=== PATIENT | male | born 1970 | race Caucasian/White ===

== ENCOUNTER 2023-02-27 07:12 | Outpatient (REF) | payer OTHER, SELFPAY | END 2023-02-27 07:13 | disposition home or self-care (01) | LOC: HO.LAB 07:12 | PROVIDERS: PCP Internal Medicine; Visit Provider Internal Medicine | DX: J30.89 Other allergic rhinitis (principal) | CPT/HCPCS: 36415; 86003 ==

== ENCOUNTER 2023-09-01 06:18 | Outpatient (REF) | payer OTHER, SELFPAY ==
[2023-09-01 06:38] LABS: MANUAL DIFF FLAG NO
[2023-09-01 07:14] LABS: Eosinophils Absolute Auto 0.1 X10*3/uL (0.0-0.4); Eosinophils Percent Auto 3.1 % (0-4); Hematocrit 46.4 % (42.0-52.0); Imm Gran Abs Auto 0.01 X10*3/uL (0.00-0.03); Imm Gran Pct Auto 0.3 % (0.0-0.4); Lymphocytes Absolute Auto 1.8 X10*3/uL (1.2-4.9); Lymphocytes Percent Auto 46.1 % (20-40); Mean Corpuscular HGB Conc 34.5 g/dl (31.0-36.0); Mean Corpuscular Hemoglobin 29.2 pg (27.0-33.0); Mean Corpuscular Volume 84.7 fL (80.0-98.0); Monocytes Absolute Auto 0.4 X10*3/uL (0.1-1.2); Monocytes Percent Auto 11.5 % (2-11); Neutrophils Absolute Auto 1.5 x10*3/uL (2.0-8.3); Platelet Count 401 X10*3/uL (160-400); Red Blood Count 5.48 X10*6/uL (4.60-5.80); Red Cell Distribution Width 14.5 % (11.0-16.0); White Blood Count 3.8 X10*3/uL (4.8-10.8)
[2023-09-01 07:17] LABS: Appearance Urine Clear; Color Urine Yellow; Glucose Urine UA Negative (Negative); Leukocyte Esterase Urine Negative (Negative); Nitrite Urine Negative (Negative); PH 5.5 (5.0-9.0); Urine Blood Negative (Negative); Urine Ketones 15 mg/dL (Negative); Urine Protein Negative (Neg-Trace)
[2023-09-01 07:22] LABS: Bacteria Urine None Seen (None Seen); Hyaline Casts Urine 0-2 /LPF (0-2); RBC Urine 0-2 /HPF (0-2); Squamous Epithelial Cell Urine 0-2 /HPF (0-2); WBC Urine 0-5 /HPF (0-5)
[2023-09-01 07:27] LABS: Estimated Average Glucose 88 mg/dL; Hemoglobin A1c % 4.7 % (<6.0)
[2023-09-01 08:06] LABS: Alanine Aminotransferase 31 U/L (0-40); Albumin Level 4.3 g/dL (3.5-5.0); Alkaline Phosphatase 38 U/L (39-117); Anion Gap 14 (12-20); Aspartate Amino Transferase 33 U/L (5-37); Bilirubin Total 0.4 mg/dL (0.0-1.0); Blood Urea Nitrogen 16 mg/dL (9-16); Calcium 9.2 mg/dL (8.4-10.2); Carbon Dioxide 25 mmol/L (22-29); Chloride 103 mmol/L (96-108); Cholesterol 218 mg/dL (<200); Estimated Glomerular Filt Rate > 60; Glucose Random 84 mg/dL (60-115); HDL Cholesterol 20 mg/dL (>40); LDL Cholesterol Calculated 182 mg/dL (<100); Sodium 138 mmol/L (135-145); Total Protein 7.1 g/dL (6.5-8.0); Triglycerides 81 mg/dL (<150)
[2023-09-01 08:21] LABS: TSH reflex Free T4 1.66 uIU/mL (0.32-4.0)
[2023-09-02 16:59] LABS: Follicle Stimulating Hormone <0.7 mIU/mL (1.4-12.8); Lutenizing Hormone <0.2 mIU/mL (1.5-9.3); Sex Hormone Binding Globulin 9 nmol/L (10-50)
[2023-09-06 17:24] LABS: Testosterone, Free 47.4 pg/mL (35.0-155.0); Testosterone, Total 177 ng/dL (250-1100)
== END 2023-09-01 06:19 | disposition home or self-care (01) ==
LOC: HO.LAB 06:18
PROVIDERS: PCP Nurse Practitioner Acute Care; Visit Provider Nurse Practitioner Acute Care
DX: Z00.00 Encounter for general adult medical examination without abnormal findings (principal); Z13.29 Encounter for screening for other suspected endocrine disorder; Z13.1 Encounter for screening for diabetes mellitus; E78.5 Hyperlipidemia, unspecified; E66.9 Obesity, unspecified; R53.83 Other fatigue; R37 Sexual dysfunction, unspecified
CPT/HCPCS: 36415; 80053; 80061; 81001; 82306; 83001; 83002; 83036; 84270; 84402; 84403; 84443; 85025

== ENCOUNTER 2023-10-16 12:51 | Outpatient (REF) | payer OTHER, SELFPAY ==
[2023-10-16 14:07] LABS: Cholesterol 147 mg/dL (<200); HDL Cholesterol 36 mg/dL (>40); LDL Cholesterol Calculated 98 mg/dL (<100); Triglycerides 65 mg/dL (<150)
== END 2023-10-16 12:52 | disposition home or self-care (01) ==
LOC: HO.LAB 12:51
PROVIDERS: PCP Nurse Practitioner Acute Care; Visit Provider Nurse Practitioner Acute Care
DX: E78.5 Hyperlipidemia, unspecified (principal)
CPT/HCPCS: 36415; 80061; 84146

== ENCOUNTER 2023-10-23 14:40 | Outpatient (REF) | payer OTHER, SELFPAY ==
--- NOTE | ~2023-10-23 | MR_ITS ---
EXAMINATION: MR BRAIN WITH AND WITHOUT CONTRAST CLINICAL INFORMATION: Elevated prolactin, secondary hypogonadism COMPARISON: None available TECHNIQUE: MRI of the brain was obtained using routine sequences with special attention to the sella turcica before and following administration of intravenous contrast. A total of 9 mL of Gadavist was administered intravenously. FINDINGS: Prominence of the posterior pituitary gland with mildly diminished size of the anterior pituitary gland. The infundibulum is midline. No hypoenhancing nodularity is visualized. The optic chiasm, Meckel's caves, and cavernous sinuses are within normal limits. There is no reduced diffusion to suggest acute infarct. No abnormal intracranial enhancement. The ventricles and sulci are normal in size and configuration. Intracranial flow voids are preserved. Trace mucosal thickening in the ethmoid air cells. The mastoid air cells are well-aerated. No focal expansile or destructive osseous lesion. MR/MR head/brain wo/w con IMPRESSION: There is mild prominence of the posterior pituitary gland and diminished size of the anterior pituitary gland without discrete hypoenhancing nodularity.
[2023-10-23] MEDS: gadobutroL 7.5 ML VIAL IVPUSH (16:03)
== END 2023-10-23 14:41 | disposition home or self-care (01) ==
LOC: HO.MRI 14:40
PROVIDERS: PCP Nurse Practitioner Acute Care; Visit Provider Nurse Practitioner Acute Care
DX: R79.89 Other specified abnormal findings of blood chemistry (principal); E29.1 Testicular hypofunction
CPT/HCPCS: 70553; A9585

== ENCOUNTER 2023-11-10 15:48 | Outpatient (AMB) | payer OTHER, SELFPAY ==
--- NOTE | 2023-11-10 15:55 | MHC.OFFVIS ---
Intake Vital Signs 11/10/23 16:00 Height 5 ft 9 in Weight 177 lb 0.499 oz BMI 26.1 BP 132/76 Blood Pressure Location Lt brachial Position Sitting Pulse 69 Pulse Source Pulse Oximeter Intake Visit Reasons: low testosterone-lvm Intake Note: Patient present today for low testosterone follow up visit. Heating Mechanic Required: No Accompanied by: Self / Same As Patient Allergies No Known Allergies Allergy (Verified 11/10/23 16:02) Medication List - Last Reconciled 11/10/23 by Federico Johnson MD rosuvastatin (Crestor) 10 mg PO DAILY HPI HPI Comments History of Present Illness Details 53 YO Male with who is seen in consultation at the request of his PCP for Hypogonadism. First diagnosed with Hypogonadism 2 yrs ago with labs revealing drawn low testosterone. Received testosterone injections Recently had low gonadotropins were normal prolactin. MRI of the pituitary was normal]. Was started on Testosterone supplementation with 6 mos . 100 mg once wkly and found relief.Off testosterone for couple of yrs Not Currently using testosterone. Currently not achieving spontaneous am erections, and unable to achieve erection when desired. Reports low libido. Decreased facial hair and shaving frequency. Denies any change in size or shape of testicles. Denies penile discharge or scrotal tenderness. Have 3 childre ages 12, 8 and 5 yrs Denies any history of mumps orchitis. Denies any head trauma. Denies history of KATHY. with children who were conceived spontaneously as above Sense of smell intact. Denies headache or visual changes, gynecomastia or galactorrhea. Denies orthostatic symptoms, weight loss. Denies change in size of hands or feet. Denies hair loss, weight gain, cold intolerance. History of DVT or PE: No Labs: PSA CBC [facility] Medical History (Updated 11/10/23 @ 16:22 by Federico Johnson MD) Hypogonadism, testicular Surgical History (Updated 11/10/23 @ 16:03 by MCKENNA Beard) H/O splenectomy Social History (Updated 11/10/23 @ 16:05 by MCKENNA Beard) Alcohol intake: never Patient Tobacco Use Status: Never used Tobacco Physical Exam Vital Signs: Last Vital Signs Pulse 69 11/10/23 16:00 BP 132/76 11/10/23 16:00 BMI result Body Mass Index 26.1 There is the absence of eunichoidal proportions. Neck exam reveals nl thyroid about 15 gms. Chest exam reveals absence of gynecomastia. Lungs CTA. Heart is S1 S2 Reg R/R. -M/R/G. Abdominal exam is benign. Muscle strength is 5/5 proximally. Examination of genitalia reveals nl size pthalus . Testes are of nl size and consistency. There is Vasu Stage V Hair development. Patient is denying to have a prostate exam performed Assessment & Plan Assessment & Plan (1) Hypogonadism, testicular: Code(s): E29.1 - Testicular hypofunction Plan: This is a 53-year-old white male with a history of secondary hypogonadism previously treated with testosterone. He has suppressed gonadotropins, normal prolactin a normal MRI with? Small pituitary gland. Etiology unclear. Rule out hemochromatosis although doubt. Will also check adrenal axis . Patient vehemently denies use of any anabolic substance Plan is to check ferritin and a.m. cortisol as well as a repeat a.m. testosterone fasting. Also strongly advised patient to go for sleep study to rule out sleep apnea prior to initiation of testosterone. Will check PSA baseline as well. After above, went over different formulations of testosterone including oral, intramuscular and subcutaneous, transdermal Orders: Orders Prostate Specific Antigen Today E29.1 - Testicular hypofunction Cortisol Random Today E29.1 - Testicular hypofunction Ferritin Today E29.1 - Testicular hypofunction Testosterone, Free/Total Today E29.1 - Testicular hypofunction Coding Level of Care Code New Pt Level 4 (64400) Diagnoses Hypogonadism, testicular E29.1
[2023-11-10 16:00] VITALS: BP 132/76; PULSE 69; BMI 26.1
== END 2023-11-10 16:40 | disposition home or self-care (01) ==
PROVIDERS: PCP Nurse Practitioner Acute Care; Visit Provider Internal Medicine Endocrinology, Diabetes & Metabolism
DX: E29.1 Testicular hypofunction (principal)
CPT/HCPCS: 99204

== ENCOUNTER → 2023-11-10 15:48 | Outpatient (BNVA) | payer OTHER, SELFPAY | PROVIDERS: PCP Nurse Practitioner Acute Care; Visit Provider Internal Medicine Endocrinology, Diabetes & Metabolism ==

== ENCOUNTER 2023-11-11 06:04 | Outpatient (REF) | payer OTHER, SELFPAY ==
[2023-11-11 08:14] LABS: Prostate Specific Antigen 0.18 ng/mL (<0.05-4.0)
[2023-11-11 08:15] LABS: Cortisol Random 17.4 ug/dL; Ferritin 105 ng/mL (20-250)
[2023-11-15 16:38] LABS: Testosterone, Free 17.1 pg/mL (35.0-155.0); Testosterone, Total 54 ng/dL (250-1100)
== END 2023-11-11 06:05 | disposition home or self-care (01) ==
LOC: HO.LAB 06:04
PROVIDERS: PCP Internal Medicine Endocrinology, Diabetes & Metabolism; Visit Provider Internal Medicine Endocrinology, Diabetes & Metabolism
DX: Z12.5 Encounter for screening for malignant neoplasm of prostate (principal); E29.1 Testicular hypofunction
CPT/HCPCS: 36415; 82533; 82728; 84153; 84402; 84403

== ENCOUNTER 2023-12-10 15:23 | Outpatient (AMB) | payer OTHER, SELFPAY ==
[2023-12-10 15:34] VITALS: BP 120/82; PULSE 72; BMI 26.1
--- NOTE | 2023-12-10 15:34 | A.OFFVIS_ITS ---
Vital Signs 12/10/23 15:34 Height 5 ft 9 in Weight 177 lb 0.499 oz BMI 26.1 BP 120/82 Blood Pressure Location Lt brachial Position Sitting Pulse 72 Pulse Source Pulse Oximeter Intake Visit Reasons: low testosterone-confirmed Intake Note: Patient present today for low testosterone follow up visit. Manufacturing Engineer Machining Required: No Accompanied by: Self / Same As Patient Allergies No Known Allergies Allergy (Verified 12/10/23 15:39) HPI Comments Details: 53 YO Male with who is seen in consultation at the request of his PCP for Hypogonadism. First diagnosed with Hypogonadism 2 yrs ago with labs revealing drawn low testosterone. Received testosterone injections Recently had low gonadotropins were normal prolactin. MRI of the pituitary was normal]. Was started on Testosterone supplementation with 6 mos . 100 mg once wkly and found relief.Off testosterone for couple of yrs Not Currently using testosterone. Currently not achieving spontaneous am erections, and unable to achieve erection when desired. Reports low libido. Decreased facial hair and shaving frequency. Denies any change in size or shape of testicles. Denies penile discharge or scrotal tenderness. Have 3 childre ages 12, 8 and 5 yrs Denies any history of mumps orchitis. Denies any head trauma. Denies history of KATHY. with children who were conceived spontaneously as above Sense of smell intact. Denies headache or visual changes, gynecomastia or galactorrhea. Denies orth ostatic symptoms, weight loss. Denies change in size of hands or feet. Denies hair loss, weight gain, cold intolerance. History of DVT or PE: No Labs: PSA CBC MRI did not show any evidence of pituitary mass. A.m. cortisol level was normal [facility] Medical History (Updated 11/10/23 @ 16:22 by Federico Johnson MD) Hypogonadism, testicular Surgical History (Updated 11/10/23 @ 16:03 by MCKENNA Beard) H/O splenectomy Social History (Updated 11/10/23 @ 16:05 by MCKENNA Beard) Alcohol intake: never Patient Tobacco Use Status: Never used Tobacco Physical Exam Vital Signs: Last Vital Signs Pulse 72 12/10/23 15:34 BP 120/82 12/10/23 15:34 BMI result Body Mass Index 26.1 Assessment & Plan Assessment & Plan (1) Hypogonadism, testicular: Code(s): E29.1 - Testicular hypofunction Category: Medical Plan: This is a 53-year-old white male with a history of secondary hypogonadism previously treated with testosterone. He has suppressed gonadotropins, normal prolactin a normal MRI with? Small pituitary gland. Hemochromatosis has been ruled out and the patient had normal a.m. cortisol Plan is to obtain a sleep study will be done about 3 weeks time. If sleep study fails to show any sleep apnea, will initiate intramuscular testosterone 100 mg q.1 weeks. Coding Level of Care Code Est Pt Level 3 (19082) Diagnoses Hypogonadism, testicular E29.1
== END 2023-12-10 15:50 | disposition home or self-care (01) ==
PROVIDERS: PCP Nurse Practitioner Acute Care; Visit Provider Internal Medicine Endocrinology, Diabetes & Metabolism
DX: E29.1 Testicular hypofunction (principal)
CPT/HCPCS: 99213

== ENCOUNTER → 2023-12-10 15:23 | Outpatient (BNVA) | payer OTHER, SELFPAY | PROVIDERS: PCP Nurse Practitioner Acute Care; Visit Provider Internal Medicine Endocrinology, Diabetes & Metabolism ==

== ENCOUNTER → 2023-12-30 07:46 | Outpatient (REF) | payer OTHER, SELFPAY | LOC: HO.SL 07:46 | PROVIDERS: Visit Provider Internal Medicine Endocrinology, Diabetes & Metabolism | DX: R06.83 Snoring (principal); R06.5 Mouth breathing | CPT/HCPCS: 95806 ==

== ENCOUNTER → 2023-12-30 08:06 | Outpatient (BNV) | payer OTHER, SELFPAY | PROVIDERS: Visit Provider Internal Medicine | DX: R06.83 Snoring (principal) | CPT/HCPCS: 95806 ==

== ENCOUNTER 2024-02-15 05:56 | Outpatient (REF) | payer OTHER, SELFPAY ==
[2024-02-15 08:01] LABS: Hematocrit 48.1 % (42.0-52.0); Hemoglobin 16.5 g/dl (14.0-18.0)
[2024-02-15 10:30] LABS: Prostate Specific Antigen 0.23 ng/mL (<0.05-4.0)
[2024-02-19 14:54] LABS: Testosterone, Free 117.2 pg/mL (35.0-155.0); Testosterone, Total 505 ng/dL (250-1100)
[2024-02-21 10:48] LABS: Follicle Stimulating Hormone <0.7 mIU/mL (1.4-12.8); Lutenizing Hormone <0.2 mIU/mL (1.5-9.3); Sex Hormone Binding Globulin 16 nmol/L (10-50)
== END 2024-02-15 05:57 | disposition home or self-care (01) ==
LOC: HO.LAB 05:56
PROVIDERS: Urology; PCP Nurse Practitioner Acute Care; Visit Provider Internal Medicine Endocrinology, Diabetes & Metabolism
DX: E29.1 Testicular hypofunction (principal); Z12.5 Encounter for screening for malignant neoplasm of prostate
CPT/HCPCS: 36415; 83001; 83002; 84153; 84270; 84402; 84403; 85014; 85018

== ENCOUNTER 2024-02-18 06:52 | Outpatient (REF) | payer OTHER, SELFPAY ==
[2024-02-24 22:27] LABS: Testosterone, Free 165.2 pg/mL (35.0-155.0); Testosterone, Total 744 ng/dL (250-1100)
== END 2024-02-18 06:53 | disposition home or self-care (01) ==
LOC: HO.LAB 06:52
PROVIDERS: PCP Nurse Practitioner Acute Care; Visit Provider Internal Medicine Endocrinology, Diabetes & Metabolism
DX: E29.1 Testicular hypofunction (principal)
CPT/HCPCS: 36415; 84402; 84403

== ENCOUNTER 2024-06-08 15:02 | Outpatient (AMB) | payer OTHER, SELFPAY ==
--- NOTE | 2024-06-08 15:03 | MHC.OFFVIS ---
Vital Signs 06/08/24 15:05 Height 5 ft 9 in Weight 176 lb 12.972 oz BMI 26.1 BP 104/66 Blood Pressure Location Rt brachial Position Sitting Pulse 74 Pulse Source Pulse Oximeter Intake Visit Reasons: low testosterone-confirmed Intake Note: Patient present today for low testosterone follow up visit. Foreign Language Stenographer Required: No Accompanied by: Self / Same As Patient Allergies No Known Allergies Allergy (Verified 06/08/24 15:05) HPI Comments Details: 53 YO Male with who is seen in consultation at the request of his PCP for Hypogonadism. First diagnosed with Hypogonadism 2 yrs ago with labs revealing drawn low testosterone. Received testosterone injections Recently had low gonadotropins were normal prolactin. MRI of the pituitary was normal]. Was started on Testosterone supplementation with 6 mos . 100 mg once wkly and found relief.Off testosterone for couple of yrs Currently not achieving spontaneous am erections, and unable to achieve erection when desired. Reports low libido. Decreased facial hair and shaving frequency. Denies any change in size or shape of testicles. Denies penile discharge or scrotal tenderness. Have 3 childre ages 12, 8 and 5 yrs Denies any history of mumps orchitis. Denies any head trauma. Denies history of KATHY. with children who were conceived spontaneously as above Sense of smell intact. Denies headache or visual changes, gynecomastia or galactorrhea. Denies orthostatic symptoms, weight loss. Denies change in size of hands or feet. Denies hair loss, weight gain, cold intolerance. History of DVT or PE: No Labs: PSA CBC MRI did not show any evidence of pituitary mass. A.m. cortisol level was normal On 100 mg of testosterone IM Qwkly. Good libido. No change in urine stream [facility] Medical History (Updated 11/10/23 @ 16:22 by Federico Johnson MD) Hypogonadism, testicular Surgical History H/O splenectomy Family History (Updated 06/08/24 @ 15:06 by MCKENNA Smith) Mother No known health problems Father No known health problems Social History Alcohol intake: never Patient Tobacco Use Status: Never used Tobacco Physical Exam Const Other: Patient refused rectal examination Assessment & Plan Assessment & Plan (1) Hypogonadism, testicular: Code(s): E29.1 - Testicular hypofunction Category: Medical Plan: This is a 53-year-old white male with a history of secondary hypogonadism previously treated with testosterone. He has suppressed gonadotropins, normal prolactin a normal MRI with? Small pituitary gland. Hemochromatosis has been ruled out and the patient had normal a.m. cortisol . Currently on 100 mg of intramuscular testosterone Q weekly Plan is to obtain peak and trough testosterone, CBC and PSA adjust testosterone accordingly. The patient asked about other testosterone delivery systems and may consider transdermal testosterone oral testosterone in the future but wants to continue the intramuscular for now Orders: Orders Hematocrit Today E29.1 - Testicular hypofunction Hemoglobin Today E29.1 - Testicular hypofunction Testosterone, Free/Total 1 Week E29.1 - Testicular hypofunction Prostate Specific Antigen Today E29.1 - Testicular hypofunction Coding Level of Care Code Est Pt Level 3 (51472) Diagnoses Hypogonadism, testicular E29.1
[2024-06-08 15:05] VITALS: BP 104/66; PULSE 74; BMI 26.1
== END 2024-06-08 15:21 | disposition home or self-care (01) ==
PROVIDERS: PCP Nurse Practitioner Acute Care; Visit Provider Internal Medicine Endocrinology, Diabetes & Metabolism
DX: E29.1 Testicular hypofunction (principal)
CPT/HCPCS: 99213

== ENCOUNTER → 2024-06-08 15:02 | Outpatient (BNVA) | payer OTHER, SELFPAY | PROVIDERS: PCP Nurse Practitioner Acute Care; Visit Provider Internal Medicine Endocrinology, Diabetes & Metabolism ==

== ENCOUNTER 2024-07-01 06:05 | Outpatient (REF) | payer OTHER, SELFPAY ==
[2024-07-01 07:24] LABS: Hematocrit 45.9 % (42.0-52.0); Hemoglobin 16.1 g/dl (14.0-18.0)
[2024-07-01 08:25] LABS: Prostate Specific Antigen 0.31 ng/mL (<0.05-4.0)
[2024-07-06 17:58] LABS: Testosterone, Free 170.6 pg/mL (35.0-155.0); Testosterone, Total 639 ng/dL (250-1100)
== END 2024-07-01 06:06 | disposition home or self-care (01) ==
LOC: HO.LAB 06:05
PROVIDERS: PCP Nurse Practitioner Acute Care; Visit Provider Internal Medicine Endocrinology, Diabetes & Metabolism
DX: E29.1 Testicular hypofunction (principal); Z12.5 Encounter for screening for malignant neoplasm of prostate
CPT/HCPCS: 36415; 84153; 84402; 84403; 85014; 85018

== ENCOUNTER 2024-12-27 07:03 | Outpatient (REF) | payer OTHER, SELFPAY ==
[2024-12-27 07:17] LABS: MANUAL DIFF FLAG NO
[2024-12-27 07:56] LABS: Estimated Average Glucose 103 mg/dL; Hemoglobin A1c % 5.2 % (<6.0)
[2024-12-27 08:02] LABS: Basophils Percent Auto 0.9 % (0-2); Eosinophils Absolute Auto 0.2 X10*3/uL (0.0-0.4); Eosinophils Percent Auto 5.1 % (0-4); Hematocrit 48.2 % (42.0-52.0); Hemoglobin 16.4 g/dl (14.0-18.0); Lymphocytes Absolute Auto 1.9 X10*3/uL (1.2-4.9); Lymphocytes Percent Auto 41.3 % (20-40); Mean Corpuscular Hemoglobin 26.9 pg (27.0-33.0); Mean Corpuscular Volume 79.1 fL (80.0-98.0); Mean Platelet Volume 9.3 fL (9.4-12.4); Monocytes Absolute Auto 0.8 X10*3/uL (0.1-1.2); Monocytes Percent Auto 18.4 % (2-11); Neutrophils Absolute Auto 1.5 x10*3/uL (2.0-8.3); Neutrophils Percent Auto 34.3 % (45-73); Platelet Count 409 X10*3/uL (160-400); Red Blood Count 6.09 X10*6/uL (4.60-5.80); Red Cell Distribution Width 16.3 % (11.0-16.0); White Blood Count 4.5 X10*3/uL (4.8-10.8)
[2024-12-27 08:24] LABS: Alanine Aminotransferase 149 U/L (0-40); Albumin Level 4.5 g/dL (3.5-5.0); Alkaline Phosphatase 37 U/L (39-117); Anion Gap 12 (12-20); Aspartate Amino Transferase 98 U/L (5-37); Bilirubin Total 0.7 mg/dL (0.0-1.0); Blood Urea Nitrogen 17 mg/dL (9-16); Calcium 9.6 mg/dL (8.4-10.2); Carbon Dioxide 25 mmol/L (22-29); Chloride 106 mmol/L (96-108); Cholesterol 212 mg/dL (<200); Estimated Glomerular Filt Rate > 60; Glucose Random 92 mg/dL (60-115); HDL Cholesterol 41 mg/dL (>40); LDL Cholesterol Calculated 149 mg/dL (<100); Potassium 3.9 mmol/L (3.3-5.1); Sodium 139 mmol/L (135-145); Total Protein 7.3 g/dL (6.5-8.0); Triglycerides 112 mg/dL (<150)
[2024-12-27 08:40] LABS: Thyroid Stimulating Hormone 1.16 uIU/mL (0.32-4.0); Vitamin D 25-OH Total 117.6 ng/mL (>30)
== END 2024-12-27 07:04 | disposition home or self-care (01) ==
LOC: HO.LAB 07:03
PROVIDERS: Absent Provider Internal Medicine Endocrinology, Diabetes & Metabolism; PCP Nurse Practitioner Acute Care; Visit Provider Nurse Practitioner Acute Care
DX: Z00.00 Encounter for general adult medical examination without abnormal findings (principal); Z13.220 Encounter for screening for lipoid disorders; Z13.1 Encounter for screening for diabetes mellitus; E55.9 Vitamin D deficiency, unspecified; Z13.29 Encounter for screening for other suspected endocrine disorder; Z13.6 Encounter for screening for cardiovascular disorders
CPT/HCPCS: 36415; 80053; 80061; 82306; 83036; 84443; 85025

== ENCOUNTER 2025-01-02 17:04 | Outpatient (REF) | payer OTHER, SELFPAY ==
[2025-01-02 17:10] LABS: Appearance Urine Clear; Color Urine Yellow; Glucose Urine UA Negative (Negative); Leukocyte Esterase Urine Negative (Negative); Nitrite Urine Negative (Negative); Specific Gravity - Urine <= 1.005 (1.005-1.025); Urine Blood Negative (Negative); Urine Ketones Negative (Negative); Urine Protein Negative (Neg-Trace)
[2025-01-02 17:13] LABS: Bacteria Urine None Seen (None Seen); Hyaline Casts Urine 0-2 /LPF (0-2); RBC Urine 0-2 /HPF (0-2); Squamous Epithelial Cell Urine 0-2 /HPF (0-2); WBC Urine 0-5 /HPF (0-5)
--- OUTSIDE RECORDS SUMMARY | 2025-01-02 17:56 | XMS_ITS | Clinical Summary ---
Author Organization [facility] Address [address] [place] [id number] Care Team Providers Care Farm Machinery Erector Name Role Phone Unavailable Primary Care Provider Unavailabl e Medications Medication Sig Dispensed Refills Start Date End Date Status finasteride (PROSCAR) 5 MG tablet TAKE 1 TABLET EVERY DAY 90 tablet 3 08/21/2021 Active Immunizations Name Administration Dates Next Due Covid-19 (Pfizer) Dilution Required 08/03/2020,1 09/12/2019 Social History Tobacco Use Types Packs/Day Years Used Date Smoking Tobacco: Never Assessed Sex and Gender Information Value Date Recorded Sex Assigned at Male 07/12/2020 12:55 PM EST Gender Identity Not on file Sexual Orientation Not on file Plan of Treatment Health Maintenance Due Date Last Done Comments Hepatitis B Vaccines (1 of 3 - 3-dose series) 1970 Hepatitis C Screening 1970 Depression Screening 1982 Preventative Health Evaluation 1988 DTap / Tdap / Td (1 - Tdap) 1989 Colon Cancer Screening (Colonoscopy) 2015 Shingrix-Zoster Vaccine (1 o f 2) 2020 COVID-19 Vaccine (4 - 2023-2 5 season) 2024 07/12/2021, 08/03/2020, 07/12/2020 Influenza Vaccine (Season Ended) 2025 03/21/2022, 03/29/2021 Pneumococcal Vaccine Aged Out No long er eligible based on patient's age to complete this topic RSV Ped < 20 months Aged Out No longe r eligible based on patient's age to complete this topic
== END 2025-01-02 17:05 | disposition home or self-care (01) ==
LOC: HO.LNP 17:04
PROVIDERS: Visit Provider Nurse Practitioner Acute Care
DX: Z00.00 Encounter for general adult medical examination without abnormal findings (principal)
CPT/HCPCS: 81001

== ENCOUNTER 2025-02-10 06:22 | Outpatient (REF) | payer OTHER, SELFPAY ==
--- OUTSIDE RECORDS SUMMARY | 2025-02-10 06:24 | XMS_ITS | Clinical Summary ---
Author Organization [facility] Address [address] [place] [address] Care Team Providers Care Guide Rail Cleaner Name Role Phone Unavailable Primary Care Provider [...] season) 2024 07/12/2021, 08/03/2020, 07/12/2020 Influenza Vaccine (#1) 2025 2, 03/29/2021 Pneumococcal Vaccine Aged Out No long er eligible based on patient's age to complete this topic RSV Ped < 20 months Aged Out No longe r eligible based on patient's age to complete this topic
--- OUTSIDE RECORDS SUMMARY | 2025-02-10 06:24 | XMS_ITS | Patient Health Record ---
Author Organization [facility] [address] [address] Address [address] [facility] [place] [address] Care Team Providers Care Herb Grower Name Role Phone ARNULFO MALONE Unavailable [phone] Allergies No Known Allergies Reason For Referral No Information Medications Medication SIG (Take, Route, Frequency, Duration) Notes Start Date End Date Status Metoprolol Succinate 25 MG 1 capsule Ora lly Once a day Active Crestor 10 MG 1 tablet Orally Once a day Active Tamsulosin HCl 0.4 MG Oral; Duration: 30 Active traMADol HCl 50 MG TAKE 1 TABLET BY TONO TWICE A DAY NEEDED Oral; Duration: 30 08/11/2024 Active Social History Tobacco Use: Social History Observation Description Date Details (start date - stop date) Never Smoker NA - NA Tobacco Use/Smoking Question Answer Notes Are you a nonsmoker Problems Problem Type SNOMED Code ICD Code Onset Dates Problem Status W/U Status Risk Notes Problem Mixed hyperlipidemia (019004003) Mixed hyperlipidemia (E78.2) Active confirmed Problem Hyperlipidemia (55008467) Hyperlipidemia, unspecified (E78.5) Active confirmed Problem Lipid screening (769788640) Encounter for screening for lipoid disorders (Z13.220) Active confirmed Problem Vitamin D deficiency (86024039) Vitamin D deficiency (E55.9) Active confirmed Problem Diabetes mellitus screening (870587287) Diabetes mellitus screening (Z13.1) Active confirmed Problem hypercholesterolemia (disorder) (49071385) Hypercholesteremia (E78.00) Active confirmed Problem Avitaminosis D (91343561) Avitaminosis D (E55.9) Active confirmed Problem Testicular hypofunction (054578004) Secondary male hypogonadism (E29.1) Active confirmed Problem Endocrine/metabolic screening (352441756) Encounter for screening for endocrine disorder (Z13.29) Active confirmed Problem Sexual dysfunction (60293309) Sexual dysfunction (R37) Active confirmed Problem Seasonal allergic rhinitis (575700888) Chronic seasonal allergic rhinitis (J30.2) Active confirmed Vital Signs Heart Rate 78 /min 08/25/2024 Blood pressure diastolic 78 mm Hg 08/25/2024 Oximetry 98 % 08/25/2024 Height 68 in 08/25/2024 Blood pressure systolic 128 mm Hg 08/25/2024 Weight 176 lbs 08/25/2024 BMI 26.76 kg/m2 08/25/2024 Encounters Encounter Location Date Provider Diagnosis [facility] [address] [address] 08/25/2024 ARNULFO MALONE Secondary male hypog onadism E29.1 ; Hyperlipidemia, unspecified E78.5 ; Encounter for annual health examination Z00.00 and Chronic seasonal allergic rhinitis J30.2 [facility] [address] [address] 08/11/2024 ARNULFO MALONE [facility] [address] [place] [address] 01/06/2025 ARNULFO KEMALHOT [facility] [address] [place] [address] 01/18/2025 ARNULFO MALONE Hypercholesteremia E 78.00 ; Elevated liver function tests R79.89 and Prostate cancer screening Z12.5 [facility] [address] [address] 02/07/2025 ARNULFO KEMALHOT [facility] [address] [address] 02/07/2025 ARNULFO MALONE Assessments Encounter Date Diagnosis (ICD Code) Assessment Notes Treatment Notes Treatment Clinical Notes Section Notes 01/18/2025 Hypercholesteremia (ICD-10 - E78.00) 08/25/2024 Secondary male hypogonadism (ICD-10 - E29.1) Acute Concerns/Proble m List: 08/25/[address] score referral _update lipids and other labs Contracts signed for controlled substances Will see him biannually Of note, some information is being carried forward from prior records for informational purposes only and is being cited so that efficiency, safety and quality of the patient's care is not compromised This note was prepared using voice recognition software and direct typing Please excuse inadvertent customer service teller or typing errors, or uncorrected word substitutions Although every attempt has been made by the provider to proofread this document, occasional misspellings and typographical errors may still be present Due to the previous pandemic, and the use of personal protective equipment (PPE) This may decrease voice recognition accuracy Inadvertent customer service teller errors may occur 01/18/2025 Elevated liver function tests (ICD-10 - R79.89) 08/25/2024 Hyperlipidemia, unspecified (ICD-10 - E78.5) Acute Concerns/Proble m List: 08/25/[address] score referral _update lipids and other labs Contracts signed for controlled substances Will see him biannually Of note, some information is being carried forward from prior records for informational purposes only and is being cited so that efficiency, safety and quality of the patient's care is not compromised This note was prepared using voice recognition software and direct typing Please excuse inadvertent customer service teller or typing errors, or uncorrected word substitutions Although every attempt has been made by the provider to proofread this document, occasional misspellings and typographical errors may still be present Due to the previous pandemic, and the use of personal protective equipment (PPE) This may decrease voice recognition accuracy Inadvertent customer service teller errors may occur 08/25/2024 Encounter for annual health examination (ICD-10 - Z00.00) Acute Concerns/Proble m List: 08/25/[address] score referral _update lipids and other labs Contracts signed for controlled substances Will see him biannually Of note, some information is being carried forward from prior records for informational purposes only and is being cited so that efficiency, safety and quality of the patient's care is not compromised This note was prepared using voice recognition software and direct typing Please excuse inadvertent customer service teller or typing errors, or uncorrected word substitutions Although every attempt has been made by the provider to proofread this document, occasional misspellings and typographical errors may still be present Due to the previous pandemic, and the use of personal protective equipment (PPE) This may decrease voice recognition accuracy Inadvertent customer service teller errors may occur 01/18/2025 Prostate cancer screening (ICD-10 - Z12.5) 08/25/2024 Chronic seasonal allergic rhinitis (ICD-10 - J30.2) Acute Concerns/Proble m List: 08/25/[address] score referral _update lipids and other labs Contracts signed for controlled substances Will see him biannually Of note, some information is being carried forward from prior records for informational purposes only and is being cited so that efficiency, safety and quality of the patient's care is not compromised This note was prepared using voice recognition software and direct typing Please excuse inadvertent customer service teller or typing errors, or uncorrected word substitutions Although every attempt has been made by the provider to proofread this document, occasional misspellings and typographical errors may still be present Due to the previous pandemic, and the use of personal protective equipment (PPE) This may decrease voice recognition accuracy Inadvertent customer service teller errors may occur Plan Of Treatment Pending Test Test Name Order Date Liver Function Test (LFT) 01/18/2025 MRI : Brain with and without contrast MRI : Brain without Contrast 10/21/2023 FSH 08/24/2023 LH 08/24/2023 LIPID PANEL 09/23/2023 LIPID PANEL 01/18/2025 PROLACTIN 09/23/2023 PSA, SCREEN 01/18/2025 SEX HORMONE BINDING GLOBULIN (SHBG) 07/28 TESTOSTERONE, FREE AND TOTAL (MALES >15 YRS OLD) 08/24/2023 Cologuard 08/25/2022 LIPID PANEL, STANDARD 08/25/2024 COMPREHENSIVE METABOLIC PANEL 08/25/2024 CBC (INCLUDES DIFF/PLT) 08/25/2024 URINALYSIS, COMPLETE 08/25/2024 HEMOGLOBIN A1c 08/25/2024 TSH 08/25/2024 VITAMIN D,25-OH,TOTAL,IA 08/25/2024 Future Test Test Name Order Date 25OH VITAMIN D 08/25/2023 CBC (COMPLETE BLOOD COUNT) WITH DIFF COMPREHENSIVE METABOLIC PANEL 08/25/2023 HEMOGLOBIN A1C 08/25/2023 LIPID PANEL 08/25/2023 TSH WITH REFLEX TO FT4 08/25/2023 URINALYSIS W/REFLEX CULTURE 08/25/2023 Next Appt Details Provider Name:ARNULFO MALONE, 03/02/2025 11:30:00 AM, [address], [address], [place], [address], Insurance Providers Payer Name Payer Address Payer Phone Subscriber Number Group Number Insured Name Patient Relationship to Insured Coverage Start Date Coverage End Date [place] [address] [address] [place] [address] [id number] Enrique Soto Self - patient is the insured Medical (General) History Surgical History Surgery Date(Month/Year) splenectomy
--- OUTSIDE RECORDS SUMMARY | 2025-02-10 06:24 | XMS_ITS | Clinical Summary ---
Author Organization [facility] Address [address] [address] Phone Care Team Providers Care Employment Recruiter Name Role Phone Erendira Sanchez APRN Primary Care Provider [phone] Social History Tobacco Use Types Packs/Day Years Used Date Smoking Tobacco: Never Assessed Education Answer Date Recorded Are you interested in more education? Not on terra e 12/01/2023 Are you concerned about learning? Not on file 12/01/2023 No 12/01/2023 No 12/01/2023 Digital Access Answer Date Recorded No 12/01/2023 No 12/01/2023 Reliable internet access at home? Not on file 12/01/2023 Device with a working camera? Not on file Sex and Gender Information Value Date Recorded Sex Assigned at Not on file Legal Sex Male 9:38 AM EST Gender Identity Not on file Sexual Orientation Not on file Plan of Treatment Health Maintenance Due Date Last Done Comments Adult Td,Tdap Booster 1970 LIPID PANEL 1970 DEPRESSION SCREENING 1982 SMOKING Hx and SMOKELESS TOB ACCO SCREENING 1983 HEPATITIS C SCREENING 1988 HIV ONE-TIME SCREENING (18-6 5 YEARS) 1988 COLOGUARD 2015 COLONOSCOPY 2015 COLORECTAL CANCER SCREENING 2015 FIT TEST 2015 FOBT 2015 SIGMOIDOSCOPY 2015 VIRTUAL COLONOSCOPY 2015 PNEUMOCOCCAL VACCINES (50+ y ears) (1 of 1 - PCV) 2020 ZOSTER VACCINES (1 of 2) 2020 COVID-19 VACCINE (2023-2 5 season) 2024 HEPATITIS A VACCINES Aged Out No long er eligible based on patient's age to complete this topic HIB VACCINES Aged Out No longer eligi ble based on patient's age to complete this topic MENINGOCOCCAL VACCINES (ACWY) Aged Out No longer eligible based on patient's age to complete this topic MENINGOCOCCAL VACCINES (B) Aged Out N o longer eligible based on patient's age to complete this topic Medical Devices Not on file Insurance [employer] Care Teams Employment Recruiter Relationship Specialty Start Date End Date Erendira Sanchez APRN [address] [place] [address] PCP - General Nurse Practitioner 01/01/24 Additional Source Comments The information contained in this document represents components of the legal health record. It is not the complete legal health record.[facility]
[2025-02-10 07:41] LABS: Alanine Aminotransferase 42 U/L (0-40); Albumin Level 4.5 g/dL (3.5-5.0); Alkaline Phosphatase 41 U/L (39-117); Aspartate Amino Transferase 38 U/L (5-37); Cholesterol 166 mg/dL (<200); HDL Cholesterol 35 mg/dL (>40); Total Protein 7.0 g/dL (6.5-8.0); Triglycerides 97 mg/dL (<150)
== END 2025-02-10 06:23 | disposition home or self-care (01) ==
LOC: HO.LAB 06:22
PROVIDERS: PCP Nurse Practitioner Acute Care; Visit Provider Nurse Practitioner Acute Care
DX: Z12.5 Encounter for screening for malignant neoplasm of prostate (principal); E78.00 Pure hypercholesterolemia, unspecified; R79.89 Other specified abnormal findings of blood chemistry
CPT/HCPCS: 36415; 80061; 80076; 84153

== ENCOUNTER 2025-03-03 06:09 | Outpatient (REF) | payer OTHER, SELFPAY ==
--- OUTSIDE RECORDS SUMMARY | 2025-03-03 06:12 | XMS_ITS | Clinical Summary ---
Author Organization [facility] Address [address] [place] [id number] Care Team Providers Care Hrbp Name Role Phone Unavailable Primary Care Provider [...]
[2025-03-03 07:35] LABS: Hematocrit 45.0 % (42.0-52.0); Hemoglobin 15.4 g/dl (14.0-18.0)
[2025-03-03 08:19] LABS: Prostate Specific Antigen 0.55 ng/mL (<0.05-4.0)
[2025-03-09 16:53] LABS: Testosterone, Free 332.7 pg/mL (35.0-155.0)
== END 2025-03-03 06:10 | disposition home or self-care (01) ==
LOC: HO.LAB 06:09
PROVIDERS: PCP Nurse Practitioner Acute Care; Visit Provider Internal Medicine Endocrinology, Diabetes & Metabolism
DX: Z12.5 Encounter for screening for malignant neoplasm of prostate (principal); E29.1 Testicular hypofunction
CPT/HCPCS: 36415; 84153; 84402; 84403; 85014; 85018

== ENCOUNTER 2025-03-23 09:15 | Outpatient (AMB) | payer OTHER, SELFPAY ==
--- NOTE | 2025-03-23 09:15 | A.OFFVIS_ITS ---
Vital Signs 03/23/25 09:17 Height 5 ft 9 in Weight 169 lb 1.513 oz BMI 25.0 BP 112/74 Blood Pressure Location Rt brachial Position Sitting Pulse 84 Pulse Source Pulse Oximeter Pulse Oximetry (%) 97 Oxygen Delivery Method Room Air Intake Visit Reasons: Blood Work Results Intake Note: Patient present today for low testosterone follow up visit. Membership Director Required: No Accompanied by: Self / Same As Patient Allergies No Known Allergies Allergy (Verified 03/23/25 09:19) Medication List - Last Reconciled 03/23/25 by Federico Johnson MD rosuvastatin 20 mg (2 x 10 mg) PO DAILY PRN testosterone 4 pumps transdermal DAILY HPI Comments Details: 53 YO Male with who is seen in consultation at the request of his PCP for Hypogonadism. First diagnosed with Hypogonadism 2 yrs ago with labs revealing drawn low testosterone. Received testosterone injections Recently had low gonadotropins were normal prolactin. MRI of the pituitary was normal]. Was started on Testosterone supplementation with 6 mos . 100 mg once wkly and found relief.Off testosterone for couple of yrs Currently not achieving spontaneous am erections, and unable to achieve erection when desired. Reports low libido. Decreased facial hair and shaving frequency. Denies any change in size or shape of testicles. Denies penile discharge or scrotal tenderness. Have 3 childre ages 12, 8 and 5 yrs Denies any history of mumps orchitis. Denies any head trauma. Denies history of KATHY. with children who were conceived spontaneously as above Sense of smell intact. Denies headache or visual changes, gynecomastia or galactorrhea. Denies orthostatic symptoms, weight loss. Denies change in size of hands or feet. Denies hair loss, weight gain, cold intolerance. History of DVT or PE: No Labs: PSA CBC MRI did not show any evidence of pituitary mass. A.m. cortisol level was normal On 100 mg of testosterone IM Qwkly. Good libido. No change in urine stream. Testosterone level was normal with normal PSA and CBC The patient is a 54-year-old male presenting with a follow-up for testosterone therapy and preventative health screenings. The patient is on testosterone therapy with levels at 970 ng/dL, feeling well without adverse effects. A calcium heart scan showed a score of 0, indicating no calcified plaque, despit e a family history of heart disease. PSA screening results were good, and the patient declined a rectal exam. - Labs: Testosterone level at 970 ng/dL, PSA levels reported as good. - Tests: Calcium heart scan score of 0, indicating no calcified plaque. [facility] Medical History (Updated 11/10/23 @ 16:22 by Federico Johnson MD) Hypogonadism, testicular Surgical History H/O splenectomy Family History Mother No known health problems Father No known health problems Social History Alcohol intake: never Patient Tobacco Use Status: Never used Tobacco Physical Exam Vital Signs: Last Vital Signs Pulse 84 03/23/25 09:17 BP 112/74 03/23/25 09:17 Pulse Ox 97 03/23/25 09:17 Oxygen Delivery Method Room Air 03/23/25 09:17 BMI result Body Mass Index 25.0 Const Other: Patient refused rectal examination Assessment & Plan Assessment & Plan (1) Hypogonadism, testicular: Code(s): E29.1 - Testicular hypofunction Category: Medical Plan: This is a 54-year-old white male with a history of secondary hypogonadism pr eviously treated with testosterone. He has suppressed gonadotropins, normal prolactin a normal MRI with? Small pituitary gland. Hemochromatosis has been ruled out and the patient had normal a.m. cortisol . Currently on 100 mg of intramuscular testosterone Q weekly Plan is to continue present management. Follow up scheduled in 1 year 1. Testosterone therapy The patient's testosterone levels are stable at 970 ng/dL, and he reports feeling well without adverse effects. Continued monitoring every 12 months is recommended unless issues arise. The patient had an opportunity to ask questions regarding treatment plan. The patient expressed understanding and agreement with the above treatment plan. Patient was informed and verbally consented to the use of an ambient scribe for clinic note documentation during this visit. Orders: Orders Testosterone, Free/Total 1 Year E29.1 - Testicular hypofunction Hematocrit 1 Year E29.1 - Testicular hypofunction Hemoglobin 1 Year E29.1 - Testicular hypofunction Prostate Specific Antigen 1 Year E29.1 - Testicular hypofunction Coding Level of Care Code Est Pt Level 3 (76198) Diagnoses Hypogonadism, testicular E29.1
[2025-03-23 09:17] VITALS: BP 112/74; PULSE 84; O2SAT 97; BMI 25.0
--- OUTSIDE RECORDS SUMMARY | 2025-03-23 10:14 | XMS_ITS | Clinical Summary ---
Author Organization [facility] Address [address] [place] [address] Care Team Providers Care Bracer Name Role Phone Unavailable Primary Care Provider [...]
--- OUTSIDE RECORDS SUMMARY | 2025-03-23 10:14 | XMS_ITS | Patient Health Record ---
[facility] Organization [facility] [address] [address] Address [address] [facility] [place] [address] Care Team Providers Care Tele Rn Name Role Phone ARNULFO MALONE Unavailable [phone] Allergies No Known Allergies Reason For Referral No Information Medications Medication SIG (Take, Route, Frequency, Duration) Notes Start Date End Date Status Crestor 10 MG 1 tablet Orally Once a day Active Metoprolol Succinate 25 MG 1 capsule Ora lly Once a day Active traMADol HCl 50 MG TAKE 1 TABLET BY TONO TH TWICE A DAY NEEDED Oral; Duration: 30 08/11/2024 Active Tamsulosin HCl 0.4 MG Oral; Duration: 30 Active Social History Tobacco Use: Social History Observation Description Date Details (start date - stop date) Never Smoker NA - NA Tobacco Use/Smoking Question Answer Notes Are you a nonsmoker Problems Problem Type SNOMED Code ICD Code Onset Dates Problem Status W/U Status Risk Notes Problem Mixed hyperlipidemia (564455706) Mixed hyperlipidemia (E78.2) Active confirmed Problem Hyperlipidemia (80217871) Hyperlipidemia, unspecified (E78.5) Active confirmed Problem Lipid screening (004804008) Encounter for screening for lipoid disorders (Z13.220) Active confirmed Problem Vitamin D deficiency (28051524) Vitamin D deficiency (E55.9) Active confirmed Problem Diabetes mellitus screening (464445622) Diabetes mellitus screening (Z13.1) Active confirmed Problem hypercholesterolemia (disorder) (63217415) Hypercholesteremia (E78.00) Active confirmed Problem Avitaminosis D (83916022) Avitaminosis D (E55.9) Active confirmed Problem Testicular hypofunction (877449955) Secondary male hypogonadism (E29.1) Active confirmed Problem Endocrine/metabolic screening (095840728) Encounter for screening for endocrine disorder (Z13.29) Active confirmed Problem Sexual dysfunction (93567886) Sexual dysfunction (R37) Active confirmed Problem Seasonal allergic rhinitis (787634373) Chronic seasonal allergic rhinitis (J30.2) Active confirmed Vital Signs Heart Rate 70 /min 03/02/2025 Oximetry 98 % 03/02/2025 Blood pressure diastolic 94 mm Hg 03/02/2025 Height 68 in 03/02/2025 Blood pressure systolic 128 mm Hg 03/02/2025 Weight 171.6 lbs 03/02/2025 BMI 26.09 kg/m2 03/02/2025 Encounters Encounter Location Date Provider Diagnosis [facility] [address] [address] 08/25/2024 ARNULFO BORHOT Secondary male hypog onadism E29.1 ; Hyperlipidemia, unspecified E78.5 ; Encounter for annual health examination Z00.00 and Chronic seasonal allergic rhinitis J30.2 [facility] [address] 03/02/2025 ARNULFO BORHOT Secondary male hypog onadism E29.1 ; Hyperlipidemia, unspecified E78.5 ; Chronic seasonal allergic rhinitis J30.2 ; Encounter for examination of blood pressure without abnormal findings Z01.30 and Long-term current use of testosterone replacement therapy Z79.890 [facility] [address] 08/11/2024 ARNULFO KEMALHOT [facility] [address] [place] [address] 01/06/2025 ARNULFO BORHOT [facility] [address] [place] [address] 01/18/2025 ARNULFO KEMALHOT Hypercholesteremia E 78.00 ; Elevated liver function tests R79.89 and Prostate cancer screening Z12.5 [facility] [address] 02/07/2025 ARNULFO BORHOT [facility] [address] 02/07/2025 ARNULFOCRUZ ISSAT Assessments Encounter Date Diagnosis (ICD Code) Assessment [...] software and direct typing Please excuse inadvertent equipment maintenance technician or typing errors, or uncorrected word substitutions Although every attempt has been made by the provider to proofread this document, occasional misspellings and typographical errors may still be present Due to the previous pandemic, and the use of personal protective equipment (PPE) This may decrease voice recognition accuracy Inadvertent equipment maintenance technician errors may occur 03/02/2025 Secondary male hypogonadism (ICD-10 - E29.1) Acute Concerns/Proble m List: 03/02/2025 Will see him back after the new year for CPE Labs reviewed Coronary calcium CT score referral TRT managed by endocrinology Of note, some information is being carried forward from prior records for informational purposes only and is being cited so that efficiency, safety and quality of the patient's care is not compromised This note was prepared using voice recognition software and direct typing Please excuse inadvertent equipment maintenance technician or typing errors, or uncorrected word substitutions Although every attempt has been made by the provider to proofread this document, occasional misspellings and typographical errors may still be present Due to the previous pandemic, and the use of personal protective equipment (PPE) This may decrease voice recognition accuracy Inadvertent equipment maintenance technician errors may occur 01/18/2025 Elevated liver function tests (ICD-10 - R79.89) 03/02/2025 Hyperlipidemia, unspecified (ICD-10 - E78.5) Acute Concerns/Proble m List: 03/02/2025 Will see him back after the new year for CPE Labs reviewed Coronary calcium CT score referral TRT managed by endocrinology Of note, some information is being carried forward from prior records for informational purposes only and is being cited so that efficiency, safety and quality of the patient's care is not compromised This note was prepared using voice recognition software and direct typing Please excuse inadvertent equipment maintenance technician or typing errors, or uncorrected word substitutions Although every attempt has been made by the provider to proofread this document, occasional misspellings and typographical errors may still be present Due to the previous pandemic, and the use of personal protective equipment (PPE) This may decrease voice recognition accuracy Inadvertent equipment maintenance technician errors may occur 08/25/2024 Hyperlipidemia, unspecified (ICD-10 - E78.5) Acute [...] software and direct typing Please excuse inadvertent equipment maintenance technician or typing errors, or uncorrected word substitutions Although every attempt has been made by the provider to proofread this document, occasional misspellings and typographical errors may still be present Due to the previous pandemic, and the use of personal protective equipment (PPE) This may decrease voice recognition accuracy Inadvertent equipment maintenance technician errors may occur 08/25/2024 Encounter for annual [...] software and direct typing Please excuse inadvertent equipment maintenance technician or typing errors, or uncorrected word substitutions Although every attempt has been made by the provider to proofread this document, occasional misspellings and typographical errors may still be present Due to the previous pandemic, and the use of personal protective equipment (PPE) This may decrease voice recognition accuracy Inadvertent equipment maintenance technician errors may occur 08/25/2024 Chronic seasonal allergic rhinitis (ICD-10 - [...] software and direct typing Please excuse inadvertent equipment maintenance technician or typing errors, or uncorrected word substitutions Although every attempt has been made by the provider to proofread this document, occasional misspellings and typographical errors may still be present Due to the previous pandemic, and the use of personal protective equipment (PPE) This may decrease voice recognition accuracy Inadvertent equipment maintenance technician errors may occur 01/18/2025 Prostate cancer screening (ICD-10 - Z12.5) 03/02/2025 Chronic seasonal allergic rhinitis (ICD-10 - J30.2) Acute Concerns/Proble m List: 03/02/2025 Will see him back after the new year for CPE Labs reviewed Coronary calcium CT score referral TRT managed by endocrinology Of note, some information is being carried forward from prior records for informational purposes only and is being cited so that efficiency, safety and quality of the patient's care is not compromised This note was prepared using voice recognition software and direct typing Please excuse inadvertent equipment maintenance technician or typing errors, or uncorrected word substitutions Although every attempt has been made by the provider to proofread this document, occasional misspellings and typographical errors may still be present Due to the previous pandemic, and the use of personal protective equipment (PPE) This may decrease voice recognition accuracy Inadvertent equipment maintenance technician errors may occur 03/02/2025 Encounter for examination of blood pressure without abnormal findings (ICD-10 - Z01.30) Acute Concerns/Proble m List: 03/02/2025 Will see him back after the new for CPE Labs reviewed Coronary calcium CT score referral TRT managed by endocrinology Of note, some information is being carried forward from prior records for informational purposes only and is being cited so that efficiency, safety and quality of the patient's care is not compromised This note was prepared using voice recognition software and direct typing Please excuse inadvertent equipment maintenance technician or typing errors, or uncorrected word substitutions Although every attempt has been made by the provider to proofread this document, occasional misspellings and typographical errors may still be present Due to the previous pandemic, and the use of personal protective equipment (PPE) This may decrease voice recognition accuracy Inadvertent equipment maintenance technician errors may occur 03/02/2025 Long-term current us e of testosterone replacement therapy (ICD-10 - Z79.890) Acute Concerns/Proble m List: 03/02/2025 Will see him back after the new year for CPE Labs reviewed Coronary calcium CT score referral TRT managed by endocrinology Of note, some information is being carried forward from prior records for informational purposes only and is being cited so that efficiency, safety and quality of the patient's care is not compromised This note was prepared using voice recognition software and direct typing Please excuse inadvertent equipment maintenance technician or typing errors, or uncorrected word substitutions Although every attempt has been made by the provider to proofread this document, occasional misspellings and typographical errors may still be present Due to the previous pandemic, and the use of personal protective equipment (PPE) This may decrease voice recognition accuracy Inadvertent equipment maintenance technician errors may occur Plan Of Treatment Pending Test Test Name Order Date Liver Function Test (LFT) 01/18/2025 MRI : Brain with and without contrast MRI : Brain without Contrast 10/21/2023 FSH 08/24/2023 LH 08/24/2023 LIPID PANEL 01/18/2025 LIPID PANEL 09/23/2023 PROLACTIN 09/23/2023 PSA, SCREEN 01/18/2025 SEX HORMONE [...] 08/25/2023 Next Appt Details Provider Name:ARNULFO MALONE, 09/19/2025 10:30:00 AM, [address] [facility], [facility] [address], [place], [address], Insurance Providers Payer Name Payer Address Payer Phone Subscriber Number Group Number Insured Name Patient Relationship to Insured Coverage Start Date Coverage End Date [employer] Benefits Admin [address] [address] [place] [address] [phone] [id number] Enrique Soto Self - patient is the insured Medical (General) History Surgical History Surgery Date(Month/Year) splenectomy
--- OUTSIDE RECORDS SUMMARY | 2025-03-23 10:14 | XMS_ITS | Clinical Summary ---
Author Organization [facility] Address [address] [address] Phone Care Team Providers Care Channel Lip Wetter Name Role Phone Erendira Sanchez NP Primary Care Provider [phone] Social History Tobacco Use Types Packs/Day Years [...] VACCINES (1 of 2) 2020 COVID-19 VACCINE (1 - 2024-2 5 season) 2024 HEPATITIS A VACCINES Aged [...] topic Medical Devices Not on file Insurance [employer] Care Teams Channel Lip Wetter Relationship Specialty Start Date End Date Erendira Sanchez NP [address] [facility] [place] [address] PCP - General Nurse Practitioner 01/01/24 Additional Source Comments The information contained in this document represents components of the legal health record. It is not the complete legal health record.[facility]
== END 2025-03-23 09:26 | disposition home or self-care (01) ==
PROVIDERS: PCP Nurse Practitioner Acute Care; Visit Provider Internal Medicine Endocrinology, Diabetes & Metabolism
DX: E29.1 Testicular hypofunction (principal)
CPT/HCPCS: 99213